=== PATIENT | female | born 1955 | race Hispanic/Latino ===

== ENCOUNTER → 2018-06-18 | Outpatient (CLI) | payer BC ==
[~2018-06-18] MED LIST: EVISTA60 MG
--- NOTE | 2018-06-19 08:27 | Diagnostic Imaging Report ---
#[id number] - USBRECOMLT ULTRASOUND OF THE LEFT BREAST : 06/18/2018 Comparison is made to exams dated: 09/04/2017 mammogram, 08/02/2016 ultrasound, 08/30/2016 mammogram and 03/28/2016 mammogram - [facility]. Color flow and real-time ultrasound were performed on the entire left breast with scanning in all four quadrants, retroareolar region and the left axilla. -In the area where the patient feels discomfort there is a contour irregularity of the implant with a slight involution. -No mass is seen in the left breast. IMPRESSION: BENIGN There is no sonographic evidence of malignancy. A 1 year screening mammogram is recommended. Andreas Chandler Jr., D.O. cw/:06/18/2018 16:45:29 [employer]: Tj Castellanos [facility], [facility] [place] letter sent: Normal Exam Ultrasound BI-RADS: 2 Benign
== END ==
LOC: US 13:09
PROVIDERS: ATTEND Internal Medicine Hematology & Oncology
DX: N63.20 Unspecified lump in the left breast, unspecified quadrant (principal); Z85.3 Personal history of malignant neoplasm of breast